=== PATIENT | male | born 1985 | race Caucasian/White ===

== ENCOUNTER 2021-02-13 14:02 | Outpatient (CLI) | payer BC ==
[~2021-02-13 14:02] MED LIST: Iopamidol-370 76% 500 ML 1 ML ONE
== END 2021-02-13 14:03 | disposition home or self-care (01) ==
LOC: BICCT 14:02
PROVIDERS: ATTEND Neurological Surgery
DX: G93.0 Cerebral cysts (principal)
CPT/HCPCS: 70470; Q9967